=== PATIENT | male | born 1985 | race Two or more races ===

== ENCOUNTER 2022-06-12 18:45 | Emergency (ER) | payer MEDICAID ==
[2022-06-12] MEDS ORDERED: Lidocaine 1% 20 ML MDV INFILT ONE (18:46)
[2022-06-12] MEDS ORDERED: Diphtheria,Pertussis(Acell),Tetanus Vaccine 0.5 ML Syringe IM ONE (19:19)
[2022-06-12] MEDS ORDERED: Cephalexin 500 MG Cap PO ONE (20:23)
== END 2022-06-12 21:35 | disposition home or self-care (01) ==
LOC: FB.ED 18:45
DX: S61.214A Laceration without foreign body of right ring finger without damage to nail, initial encounter (principal); S66.524A Laceration of intrinsic muscle, fascia and tendon of right ring finger at wrist and hand level, initial encounter; F17.210 Nicotine dependence, cigarettes, uncomplicated; Z79.899 Other long term (current) drug therapy; Z23 Encounter for immunization; Z72.0 Tobacco use; W31.2XXA Contact with powered woodworking and forming machines, initial encounter
CPT/HCPCS: 12042; 13132; 73140-F8; 90471; 90715; 99281; 99283-25; A9270-GY

== ENCOUNTER 2024-08-12 14:42 | Emergency (ER) | payer OTHER ==
[2024-08-12] MEDS ORDERED: Sodium Chloride 0.9% 10 ML Syringe FLUSH PRN (14:55)
[2024-08-12 15:16] LABS: LACTIC ACID 0.8 mmol/L (0.4-2.0)
[2024-08-12] MEDS: Prochlorperazine 10 MG/2 ML SDV IVPUSH ONE (15:18)
[2024-08-12] MEDS: Ondansetron 4 MG/2 ML SDV IVPUSH ONE (15:18)
[2024-08-12] MEDS: Sodium Chloride 0.9% 1,000 ML IV SCH (15:18)
== END 2024-08-12 16:08 | disposition home or self-care (01) ==
LOC: FB.ED 14:42
DX: K52.9 Noninfective gastroenteritis and colitis, unspecified (principal)
CPT/HCPCS: 36415; 83605; 83735; 87040; 96361; 96374; 96375; 99284; J0780; J2405; J7030